=== PATIENT | male | born 1990 | race Caucasian/White ===

== ENCOUNTER 2022-07-08 19:56 | Emergency (ER) | payer OTHER, SELFPAY ==
--- NOTE | ~2022-07-08 | XR_ITS ---
EXAMINATION: XR LUMBOSACRAL SPINE CLINICAL INFORMATION: Back pain. COMPARISON: Radiograph of lumbar spine 08/12/2019. TECHNIQUE: Three views of the lumbosacral spine. FINDINGS: Subtle left apical curvature of the lumbar spine. No acute compression deformity. No subluxation. Disc heights are maintained. Posterior elements are within normal limits. SI joints are symmetric. Pelvic phleboliths are noted. No significant soft tissue abnormality. XR/XR lumbar spine 2-3V IMPRESSION: No acute fracture or malalignment.
[2022-07-08 20:16] VITALS: BP 178/99; PULSE 91; RESP 20; O2SAT 96; BMI 31.9
[2022-07-08 20:20] VITALS: TEMP 36.7
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
[2022-07-08] MEDS: oxyCODONE HCl Immed Release 5 MG TABLET PO (20:47)
[2022-07-08] MEDS: Cyclobenzaprine HCl 10 MG TABLET PO (20:47)
--- NOTE | 2022-07-08 21:58 | ED_ITS ---
HPI - General Adult General Chief complaint: Back Pain/Injury Stated complaint: Lower back pain Time Seen by Provider: 07/08/22 20:42 Source: patient Mode of arrival: ambulatory Limitations: no limitations History of Present Illness HPI narrative: 31-year-old male with history of chronic back pain presents to ED for lower back pain after lifting heavy boxes yesterday at work. Patient denies any blunt trauma falling to the ground. Patient denies any abdominal pain, nausea, vomiting, dysuria, hematuria, flank pain, fever, chills, or any urinary/ bowel incontinence. Patient denies any IV drug use. Patient denies any history of immunocompromised diseases. Related Data Previous Rx's Medication Instructions Recorded cyclobenzaprine 10 mg tablet 10 mg PO BEDTIME PRN muscle spasm 07/08/22 7 days #7 tabs naproxen 500 mg tablet 500 mg PO BID PRN pain 7 days #14 07/08/22 tabs prednisone 20 mg tablet 40 mg PO DAILY 5 days #10 tabs 07/08/22 Allergies Allergy/AdvReac Type Severity Reaction Status Date / Time No Known Allergies Allergy Unverified 05/10/20 17:13 Review of Systems Review of Systems: Back pain Yes all other systems are reviewed and are negative PMFSH Social History Social History Smoked in Last 30 Days: No Use of substances other than those prescribed or required for medical reasons: Yes Substance Use Type: Marijuana Advance Directives: No Advance Directives Information Provided: No Physical Exam ED Vital Signs: Vital Signs - 24 hr 07/08/22 20:16 07/08/22 20:20 07/08/22 22:15 Temperature 98.0 F Pulse Rate 91 87 Respiratory Rate 20 Blood Pressure 178/99 H 139/81 Pulse Oximetry 96 Oxygen Delivery Method Room Air BMI result Body Mass Index 31.9 Const General: cooperative, healthy appearing, comfortable, no acute distress, well developed, alert, awake and Physically active Orientation/consciousness: oriented to time and patient oriented x3 HENMT Head: Yes normal to inspection, Yes No palpable skull fracture present, Yes normocephalic, Yes atraumatic and No abrasion Eyes General: appearance normal, both eyes and all related structures Neck Neck: Yes normal visual inspection, Yes full ROM, Yes no lymphadenopathy, Yes no meningeal signs, Yes trachea midline, Yes supple, No anterior neck swelling and No tender Chest Chest palpation & inspection: normal inspection of the chest and normal palpation of entire chest wall Resp Effort & Inspection: normal respiratory effort and able to speak in complete sentences Auscultation: clear to auscultation bilaterally Cardio Jugular venous distension: no JVD Heart sounds: S1 normal heart sound present and S2 normal heart sound present GI Inspection: Yes normal to inspection and No abdominal wall ecchymosis Palpation (GI): Soft to palpation, not firm, nontender, no guarding and not rigid General: No CVA tenderness and Yes no CVA tenderness Back/Spine/Pelvis Back: no CVA tenderness, No CVA tenderness and back tenderness (lumbar) Skin General skin exam: no rashes or lesions noted and elasticity normal Neuro General: oriented to time, patient oriented x3, gait normal, tone normal, no meningeal signs and CN's II-XI intact bilaterally Cranial nerves: Yes CN's II-XII intact bilaterally Extrem General: Yes normal to inspection and Yes full ROM Psych Appearance: grossly normal, well kempt and not disheveled Course Course Course Narrative: X-ray oxycodone muscle relaxer ordered Reevaluation(s) Reevaluation #1: x-ray normal. Patient to be discharged Time: 22:02 Medications Administered Discontinued Medications Generic Name Dose Route Start Last Admin Trade Name Freq PRN Reason Stop Dose Admin Cyclobenzaprine HCl 10 mg 07/08/22 20:19 07/08/22 20:47 Cyclobenzaprine Hcl 10 Mg Tablet PO 07/08/22 20:20 10 mg ONCE ONE Administration Oxycodone HCl 5 mg 07/08/22 20:19 07/08/22 20:47 Oxycodone Hcl Immed Release 5 Mg Tablet PO 07/08/22 20:20 5 mg ONCE ONE Administration Medical Decision Making [facility] Narrative Medical decision making narrative: Back strain Discharge Plan Discharge Clinical Impression: Strain of lumbar region Patient Disposition: Home, Self-Care Instructions: Low Back Strain (ED), R.I.C.E. Treatment (ED) Additional Instructions: x-ray came back negative for fracture. recommend follow-up with primary care provider. Return to the ED immediately for any urinary/ bowel incontinence, dysuria, hematuria, flank pain, fever, chills, nausea, vomiting, abdominal pain, worsening back pain, or any other concerning symptoms. Prescriptions: New naproxen 500 mg tablet 500 mg PO BID PRN (Reason: pain) 7 Days Qty: 14 0RF prednisone 20 mg tablet 40 mg PO DAILY 5 Days Qty: 10 0RF cyclobenzaprine 10 mg tablet 10 mg PO BEDTIME PRN (Reason: muscle spasm) 7 Days Qty: 7 0RF Rx Instructions: back pain Stand Alone Forms: Work/School Release Interventions: ED Discharge Assessment Last Done: 07/08/22 22:18 Discharge Date/Time: 07/08/22 22:18 Print Language: Turkmen
[2022-07-08 22:15] VITALS: BP 139/81; PULSE 87
--- NOTE | 2022-07-08 22:16 | PC.NURSE ---
. pt reports 0/10 pain at this time. repeat BP performed 139/81 HR 87. discharge packet and work note provided to pt at this time. pt verbalized understanding of discharge plan
== END 2022-07-08 22:18 | disposition home or self-care (01) ==
PROVIDERS: Emergency Provider Internal Medicine; PCP Registered Nurse
DX: S39.012A Strain of muscle, fascia and tendon of lower back, initial encounter (principal); X50.0XXA Overexertion from strenuous movement or load, initial encounter; X50.3XXA Overexertion from repetitive movements, initial encounter; Y93.9 Activity, unspecified; Y92.9 Unspecified place or not applicable; Y99.0 Civilian activity done for income or pay
CPT/HCPCS: 72100; 99283; 99284

== ENCOUNTER 2024-04-24 07:15 | Emergency (ER) | payer SELFPAY ==
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
[2024-04-24 07:31] VITALS: BP 154/86; PULSE 87; RESP 18; TEMP 36.7; O2SAT 98; BMI 29.6
[2024-04-24] MEDS: Ibuprofen 400 MG TABLET PO (08:07)
[2024-04-24] MEDS: Cyclobenzaprine HCl 10 MG TABLET PO (08:07)
[2024-04-24] MEDS: oxyCODONE HCl Immed Release 5 MG TABLET PO (08:08)
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
[2024-04-24 09:48] VITALS: BP 127/85; PULSE 60; RESP 16; TEMP 36.7; O2SAT 98
== END 2024-04-24 09:49 | disposition home or self-care (01) ==
PROVIDERS: Emergency Provider Emergency Medicine
DX: S39.012A Strain of muscle, fascia and tendon of lower back, initial encounter (principal); X58.XXXA Exposure to other specified factors, initial encounter; Y93.89 Activity, other specified; Y92.89 Other specified places as the place of occurrence of the external cause; Y99.8 Other external cause status
CPT/HCPCS: 72100; 99283

== ENCOUNTER 2025-02-27 16:42 | Emergency (ER) | payer SELFPAY ==
--- NOTE | ~2025-02-27 | XR_ITS ---
CLINICAL HISTORY: pain, swelling Radiographs of the left knee, 4 views Comparison: None available Findings: There is no fracture or dislocation. No joint space narrowing or osteophytosis. Bone mineralization is normal. Small joint effusion. Soft tissue swelling. Impression: No fracture. Small joint effusion. This document has been electronically signed by: Althea Dempsey MD on 02/27/2025 18:12:01
[2025-02-27 17:12] VITALS: BP 140/85; PULSE 64; RESP 16; TEMP 36.9; O2SAT 96; BMI 31.6
--- NOTE | 2025-02-27 17:12 | ED_ITS ---
HPI - Extremity Injury (Lower) General Chief Complaint: Extremity Injury, Lower Stated Complaint: L knee pain Related Data Previous Rx's ?Medication ?Instructions ?Recorded cyclobenzaprine 10 mg tablet 10 mg PO BEDTIME PRN musc le spasm 07/08/22 7 days #7 tabs naproxen 500 mg tablet 500 mg PO BID PRN pain 7 day s #14 07/08/22 tabs prednisone 20 mg tablet 40 mg (2 x 20 mg) PO DAILY 5 days 07/08/22 #10 tabs cyclobenzaprine 10 mg tablet 10 mg PO TID PRN muscle s pasm #10 04/24/24 tabs oxycodone 5 mg tablet 5 mg PO Q8H PRN pain #7 tabs 04/24/24 Allergies Allergy/AdvReac Type Severity Reaction Status Date / Time No Known Allergies Allergy Verified 02/27/25 17:15 [facility] Social History Social History Substance Use Type: Marijuana Advance Directives: No Advance Directives Information Provided: No Physical Exam Vital Signs: Vital Signs: Last Vital Signs Temp 98.4 F 02/27/25 17:12 Pulse 64 02/27/25 17:12 Resp 16 02/27/25 17:12 BP 140/85 H 02/27/25 17:12 Pulse Ox 96 02/27/25 17:12 O2 Del Method Room Air 02/27/25 17:12 BMI result Body Mass Index 31.6 Course Course Course Narrative: This is an RME performed by Helena Feliciano CNP: Additional HPI, ROS, PE not included below will be deferred to primary provider. Patient is a 34 year old male who presents emergency department for evaluation. he began experiencing pain to his left knee particularly after prolonged standing while at work. He had taken ibuprofen 400 mg every 8 hours for a few days and pain improved. He also had a week off from work and noticed improvement. He returned to work today and after 2 hours of standing he felt increase in his pain again. Has not taken any NSAIDs/OTC analgesic today. Has previously tried ice and no improvement. No overt injury. No numbness or tingling to the legs. No Redness or warmth. No fevers or chills. Exam: no laxity to the knee, small effusion, no erythema or warmth, slight decreased AROM Plan: XR L knee Reevaluation(s) Reevaluation #1: LWCT Discharge Plan Discharge Clinical Impression: Acute knee pain Qualifiers: Laterality: left Qualified Code(s): M25.562 - Pain in left knee Patient Disposition: Left W/O Completing Treatment Prescriptions: No Action naproxen 500 mg tablet 500 mg PO BID PRN (Reason: pain) 7 Days Qty: 14 0RF prednisone 20 mg tablet 40 mg PO DAILY 5 Days Qty: 10 0RF cyclobenzaprine 10 mg tablet 10 mg PO BEDTIME PRN (Reason: muscle spasm) 7 Days Qty: 7 0RF Rx Instructions: back pain oxycodone 5 mg tablet 5 mg PO Q8H PRN (Reason: pain) Qty: 7 0RF Rx Instructions: Partial Fill upon patient request. cyclobenzaprine 10 mg tablet 10 mg PO TID PRN (Reason: muscle spasm) Qty: 10 0RF Discharge Date/Time: 02/28/25 00:31
--- NOTE | 2025-02-27 23:21 | MHC.EDTECH ---
Patient called to be room @ 0973 - No answer
== END 2025-02-28 00:31 | disposition left against medical advice (07) ==
PROVIDERS: Emergency Provider Emergency Medicine
DX: M25.562 Pain in left knee (principal)
CPT/HCPCS: 73564; 99281; 99283

== ENCOUNTER → 2025-02-27 17:15 | Outpatient (BNV) | payer SELFPAY | PROVIDERS: Visit Provider Radiology Diagnostic Radiology | DX: M25.462 Effusion, left knee (principal) | CPT/HCPCS: 73564 ==

== ENCOUNTER 2025-06-07 15:53 | Outpatient (REF) | payer OTHER, SELFPAY ==
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
--- OUTSIDE RECORDS SUMMARY | 2025-06-07 19:09 | XMS_ITS | Encounter Summary ---
Author Organization [employer] Address [address] [facility] [address] [place] [address] Care Team Providers Care Loss Prevention And Safety Manager Name Role Phone Unavailable Primary Care Provider Unavailabl e Encounter Details Date Type Department Care Team (Latest Contact Info) Description 06/07/2025 Travel Social History Tobacco Use Types Packs/Day Years Used Date Smoking Tobacco: Never Passive Smoke Exposure: Never Smokeless Tobacco: Never Depression Answer Date Recorded Patient Health Questionnaire-9 Score 9 06/07/2025 Patient Health Questionnaire-9 Score 9 06/07/2025 Last PHQ-9: Questionnaire Data Not on file 1 Housing Stability Answer Date Recorded What is your housing situation today? I have rachelejennifer bailey 06/07/[address] you [...] AM EDT documented as of this encounter Functional Status * Over the [...] Duarte MA documented as of this encounter Plan of Treatment Upcoming Encounters Date Type Department Care Team (Late st Contact Info) Description 07/07/2025 9:15 AM EST Office Visit [facility] [address] [place] [id number] documented as of this encounter Visit Diagnoses Not on filedocumented in this encounter Additional Health Concerns Assessment Noted Time PHQ-9 Depression Total Score: 9 06/07/20 25 2:58 PM EDT documented as of this encounter
--- OUTSIDE RECORDS SUMMARY | 2025-06-07 19:09 | XMS_ITS | Clinical Summary ---
Author Organization [employer] Address [address] [place] [address] Care Team Providers Care Farm Mortgage Agent Name Role Phone Unavailable Primary Care Provider Unavailabl e Allergies No known active allergies Medications albuterol 108 (90 Base) MCG/ACT inhalerIndicatio ns:Mild intermittent asthma without complication Inhale 2 puffs every 4 (four) hours. 9 Active Omeprazole 20 MG tablet delayed-releaseI ndications:Gastr oesophageal reflux disease, unspecified whether esophagitis present Take 1 tablet (20 mg) by mouth Once per day. 30 tablet 3 5 Active escitalopram (Lexapro) 5 MG tabletIndication s:Generalized anxiety disorder with panic attacks Take 1 tablet (5 mg) by mouth Once per day. 30 tablet 2 5 026 Active Blood Pressure Monitoring (Blood Pressure Cuff) miscIndications: Elevated blood pressure reading 1 each Once per day. 1 each 5 Active Melatonin ER 5 MG tablet controlled-relea se Take 1 tablet (5 mg) by mouth at bedtime. 30 tablet 1 5 025 Discontinued Active Problems Problem Noted Date Diagnosed Date Mild intermittent asthma 06/07/2025 Assessment & Plan (06/07/2025 4:29 PM EDT): Currently well controlled with albuterol use 3x/month. Advised to contact office if acute exacerbation (illness) or using albuterol >2X/week Elevated blood pressure reading 06/07/2025 Assessment & Plan (06/07/2025 4:29 PM EDT): Instructed to record BP at home at various times of day. Encouraged diet and exercise, decrease salt intake. Will consider anti-hypertensive medication at F/U in 4-6 weeks. Orders: Blood Pressure Monitoring (Blood Pressure Cuff) misc; 1 each Once per day. Generalized anxiety disorder with panic attacks 06/07/2025 Assessment & Plan (06/07/2025 4:29 PM EDT): Already established with therapist at [facility]. Will start Lexapro daily. F/U in 4-6 weeks. Will consider hydroxyzine prn if panic attacks persist. Could also be used to help with sleep. Orders: escitalopram (Lexapro) 5 MG tablet; Take 1 tablet (5 mg) by mouth Once per day. Gastroesophageal reflux disease 06/07/2025 Assessment & Plan (06/07/2025 4:29 PM EDT): Reporting frequent heartburn, especially at night. Advised to avoid eating close to bedtime. Avoid spicy or acidic foods. Start omeprazole daily on an empty stomach and F/U in 4-6 weeks. Orders: Omeprazole 20 MG tablet delayed-release; Take 1 tablet (20 mg) by mouth Once per day. Rash 06/07/2025 Assessment & Plan (06/07/2025 4:29 PM EDT): Diffuse nodules on torso and arms. Reports that he has been told in the past that it is eczema, but no previous therapies have helped. Orders: Referral to [facility] Derm Skin; Future Resolved Problems Problem Noted Date Diagnosed Date Resolved Date Primary insomnia 06/07/2025 06/07/2025 Encounters Date Type Department Care Team Description 06/07/2025 2:30 PM EDT Office Visit [facility] [address] [place] [address] Dulce Maria Anderson MD Mild intermittent asthma without complication (Primary Dx); Dietary counseling; Exercise counseling; Generalized anxiety disorder with panic attacks; Gastroesophageal reflux disease, unspecified whether esophagitis present; Rash; Elevated blood pressure reading 06/07/2025 Travel 06/06/2025 Telephone [facility] [address] [place] [address] Carol Villalba NP Chart Prep 05/31/2025 Patient Outreach [facility] [address] [place] [address] Carol Villalba NP Pre-visit Planning ([facility] unable to reach LVM ) 05/23/2025 Telephone [facility] [address] [place] [address] Joel Ochoa MD 05/03/2025 Telephone [facility] [address] [place] [address] Joel Ochoa MD Appointment Request from Last 3 Months Social History Tobacco Use Types Packs/Day Years [...] not to disclose 2021 10:17 AM EDT Last Filed Vital Signs Vital Sign Reading [...] Mass Index 33.12 06/07/2025 2:45 PM EDT Plan of Treatment Upcoming Encounters Date Type Department Care Team ([facility] st Contact Info) Description 07/07/2025 9:15 AM EST Office Visit [facility] [address] [place] [address] Health Maintenance Due Date Last Done Comments Family Planning (PISQ) 2005 HPV Vaccines (1 - 3-dose series) 2005 Hepatitis C Screening 2008 DTaP/Tdap/Td Vaccines (1 - Tdap) 2009 Hepatitis B Vaccines (1 of 3 - 19+ 3-dose series) 2009 Pneumococcal Vaccine: Pediatrics (0 to 5 Years) and At-Risk Patients (6 to 49) Years (1 of 2 - PCV) 2009 COVID-19 Vaccine (1 - 2023-2 5 season) 2025 Influenza Vaccine (#1) 2025 Depression Monitoring 12/06/2025 06/07/2025 , 06/07/2025 Alcohol/Substance Use Screening 06/07/2026 06/07/2025 Disability Screening 06/07/2026 06/07/2025 SDOH Screening 06/07/2026 06/07/2025 Tobacco Screening 06/07/2026 06/07/2025 Zoster Vaccines (1 of 2) 2040 RSV Patients and Patients Aged 60 years or older (1 - 1-dose 75+ series) 2065 HIV Screening Completed 08/29/2019 HIB Vaccines Aged Out No longer eligi ble based on patient's age to complete this topic Hepatitis A Vaccines Aged Out No long er eligible based on patient's age to complete this topic IPV Vaccines Aged Out No longer eligi ble based on patient's age to complete this topic Meningococcal B Vaccine Aged Out No l onger eligible based on patient's age to complete this topic Meningococcal Vaccine Aged Out No luis enrique jake eligible based on patient's age to complete this topic RSV under 20 months Aged Out No longe r eligible based on patient's age to complete this topic Rotavirus Vaccines Aged Out No longer eligible based on patient's age to complete this topic Procedures Procedure Name Priority Date/Time Associated Diagnosis Comments RACHEL HISTORICAL HIV AB/AG Routine 08/29/2019 11:30 AM EST from Last 3 Months or Most Recently Relevant to Health Maintenance Results * HIV AB/AG (08/29/2019 11:30 AM EST) [facility] HIV AG/AB NONREACTIVE [facility] Comment: HIV-1 p24 Ag and/or HIV-1/HIV-2 Ab not detected. A test result that is nonreactive does not exclude the possibility of exposure to or infection with HIV-1 and/or HIV-2. Nonreactive results in this assay for individuals with prior exposure to HIV-1 and/or HIV-2 may be due to antigen and antibody levels that are below the limit of detection of this assay. The [employer] HIV Ag/Ab Combo assay result and supplemental assay results should be interpreted in conjunction with the patient's clinical presentation, history and other laboratory results. If the results are inconsistent with clinical evidence, additional testing is suggested to confirm the result. 08/29/2019 11:3 0 AM EST us Historical Provider HISTORICAL/NON ORDERABLE LABS Final Result [facility] [address] from Last 3 Months or Most Recently Relevant to Health Maintenance Insurance [facility] PPO
--- OUTSIDE RECORDS SUMMARY | 2025-06-07 19:09 | XMS_ITS | Encounter Summary ---
Author Organization [employer] Address [address] [place] [address] Care Team Providers Care Talent Acquisition Associate Name Role Phone Unavailable Primary Care Provider Unavailabl e Reason for Visit * Reason Onset Date Comments Chart Prep 06/06/2025 Encounter Details Date Type Department Care Team ([facility] st Contact Info) Description 06/06/2025 Telephone [facility] [address] [place], [place] [phone] Carol Villalba, SILVIA [address] [place], [place] [phone] Chart Prep Social History Tobacco Use Types Packs/Day Years Used Date Smoking Tobacco: Never Assessed Depression Answer Date Recorded Patient Health Questionnaire-9 [...] AM EDT documented as of this encounter Miscellaneous Notes * Telephone Encounter - Arabella Person [place] - 06/06/2025 8:56 AM EDT Chart Prep Labs: not applicable Images: not applicable Referrals: not applicable Vaccines due: Covid, Flu, PCV20, Tdap, Hep B, and HPV Screenings: Hep C Overdue care gaps: SBIRT, SDOH, PHQ-9, MARILYN-7, Oral health screening, Disability screen, and Tobacco documented in this encounter Plan of Treatment Upcoming Encounters Date Type Department Care Team (Late st Contact Info) Description 07/07/2025 9:15 AM EST Office Visit [facility] [address] [place] [address] documented as of this encounter Visit Diagnoses Not on filedocumented in this encounter
[2025-06-08 04:47] LABS: CT PCR Urine NOT DETECTED (Not Detect.); NG PCR Urine NOT DETECTED (Not Detect.)
== END 2025-06-07 15:54 | disposition home or self-care (01) ==
LOC: HO.HHCL 15:53
PROVIDERS: PCP Internal Medicine; Visit Provider Internal Medicine
DX: Z11.3 Encounter for screening for infections with a predominantly sexual mode of transmission (principal); Z20.2 Contact with and (suspected) exposure to infections with a predominantly sexual mode of transmission
CPT/HCPCS: 87491; 87591

== ENCOUNTER 2025-08-13 13:17 | Emergency (ER) | payer OTHER, SELFPAY ==
[2025-08-13 13:35] VITALS: BP 171/86; PULSE 96; RESP 16; TEMP 36.6; O2SAT 96; BMI 32.5
--- NOTE | 2025-08-13 13:35 | ED.ABDPAIN ---
HPI - Abdominal Pain General Chief Complaint: Nausea/Vomiting/Diarrhea Stated Complaint: vomitting since thu, bicep numb, [place], fever Time Seen by Provider: 08/13/25 13:43 Source: patient, RN notes reviewed and old records reviewed Mode of arrival: ambulatory Limitations: no limitations History of Present Illness ED Provider: Gray HPI narrative: Patient is a 34-year-old male presenting to the emergency department with complaint of diarrhea which began on night, then nausea and vomiting which began on Thursday and has persisted through the weekend. States he has not been able to tolerate any p.o. fluids. States emesis has been nonbloody, nonbilious. Reports he has not had diarrhea since . Denies fevers. Diffuse abdominal pain. States that when he started vomiting on Thursday he developed a headache and pain to bilateral upper arms. Related Data Previous Rx's ?Medication ?Instructions ?Recorded cyclobenzaprine 10 mg tablet 10 mg PO BEDTIME PRN muscle spasm 07/08/22 7 days #7 tabs naproxen 500 mg tablet 500 mg PO BID PRN pain 7 days #14 07/08/22 tabs prednisone 20 mg tablet 40 mg (2 x 20 mg) PO DAILY 5 days 07/08/22 #10 tabs cyclobenzaprine 10 mg tablet 10 mg PO TID PRN muscle spasm #10 04/24/24 tabs oxycodone 5 mg tablet 5 mg PO Q8H PRN pain #7 tabs 04/24/24 ondansetron 4 mg disintegrating 4 mg PO Q8H PRN nausea and 08/13/25 tablet vomiting #10 tabs Allergies Allergy/AdvReac Type Severity Reaction Status Date / Time No Known Allergies Allergy Verified 08/13/25 13:36 Review of Systems Review of Systems As per HPI Yes all other systems are reviewed and are negative Constitutional: Reports as per HPI [facility] Social History Social History Smoked in Last 30 Days: No Use of substances other than those prescribed or required for medical reasons: Yes Substance Use Type: Marijuana Substance Use Frequency: Monthly Advance Directives: No Advance Directives Information Provided: No Do you have a plan to hurt others: No Plan Physical Exam ED Vital Signs: Vital Signs - 24 hr 08/13/25 13:35 08/13/25 14:07 Temperature 98 F 98.2 F Pulse Rate 96 89 Respiratory Rate 16 18 Blood Pressure 171/86 H 171/98 H Pulse Oximetry 96 95 Oxygen Delivery Method Room Air Room Air BMI result Body Mass Index 32.5 Vital signs have been reviewed and appear to be correct. Blood pressure elevated. Heart rate normal. Respiratory rate normal. Temperature normal. Oxygen saturation normal. Const General: cooperative, healthy appearing and no acute distress Orientation/consciousness: oriented to person, oriented to place, oriented to time and patient oriented x3 Limitations: no limitations HENMT Head: Yes normocephalic and Yes atraumatic Ears: external ears normal General nose exam: Normal external nose present Face and sinus: Yes face symmetric Mouth: oropharynx normal and moist mucous membranes Throat: Yes uvula midline Eyes Pupils: Equal, round and reactive pupils present Neck Neck: Yes normal visual inspection and Yes supple Resp Effort & Inspection: normal respiratory effort and able to speak in complete sentences Auscultation: clear to auscultation bilaterally Cardio Rate: regular rate Rhythm: regular rhythm Heart sounds: S1 normal heart sound present and S2 normal heart sound present GI Palpation (GI): Soft to palpation and nontender Auscultation: normoactive bowel sounds General: Yes no CVA tenderness Back/Spine/Pelvis Back: no CVA tenderness Skin General skin exam: elasticity normal and turgor normal Neuro General: oriented to person, oriented to place, oriented to time, patient oriented x3, moves all extremities, no focal motor deficits and CN's II-XI intact bilaterally Cranial nerves: Yes Equal, round and reactive pupils present Cognition (Neuro): normal cognition Extrem General: Yes full ROM, Yes no pedal edema and Yes no calf tenderness Psych Mental Status: mental status grossly normal Affect: normal affect Thought process: Normal thought process present Course Course Course Narrative: This is a Rapid Medical Examination (RME) performed by Pippa Tang NP in triage. Full assessment, plan deferred to refrigeration systems installer. 34-year-old male presents to the ED for evaluation of 3 days of nausea, vomiting. Reports that since yesterday he has developed pain to the bilateral biceps, as well as headache after vomiting episodes. He called the on-call provider yesterday, who recommended ER evaluation. Generalized abdominal pain, no diarrhea, constipation. Cannot hold down anything PO per his report. Subjective fever, chills. No known sick contacts. No abdominal surgeries. No urinary complaints, is urinating normally. +daily marijuana user, has not been using marijuana since illness, approx. 3 days. Denies hx of cyclical vomiting. Plan: UA, labs. Medical Decision Making Medical Decision Making [facility] Narrative: Patient is a 34-year-old male presenting to the emergency department with complaint of diarrhea which began on night, then nausea and vomiting which began on Thursday and has persisted through the weekend. On exam patient is awake, A+Ox3, BP elevated, VS otherwise WNL, afebrile, normal neurological exam without focal deficits, physical exam findings as above. Patient reports known history of HTN, states his PCP wanted to see if his BPs improved with weight loss and has not started him on any antihypertensive medications. Given reported symptoms and physical exam findings, initial differential includes but is not limited to viral illness, COVID, flu, gastroenteritis, electrolyte abnormality, dehydration, cannabinoid hyperemesis syndrome. Labs notable for leukocytosis, otherwise grossly within normal limits, normal CK. EKG shows normal sinus rhythm. Viral serology negative. Medicated with IV fluids and droperidol with good improvement in symptoms. Able to tolerate mi jacques in the ED. Feel comfortable with Discharge home. Will send prescription for Zofran. Return precautions discussed at bedside. Patient verbalized understanding of and agreement with plan. Differential Diagnosis Differential Diagnoses: The differential diagnosis associated with the presentation includes as per [facility] Admission/Observation Consideration of admission/observation: Escalation of care including admission/observation considered Patient would have been admitted to the hospital and transferred to appropriate facility had their clinical presentation warranted hospital admission. Lab Data [facility] Lab Attestation statement: I reviewed the patient's lab results. as per [facility] 08/13/25 14:26 08/13/25 13:57 Labs: Lab Results 08/13/25 08/13/25 Range/Units 13:57 14:26 WBC 15.2 H (4.8-10.8) X10*3/uL RBC 4.60 (4.60-5.80) X10*6/uL Hgb 14.0 (14.0-18.0) g/dl Hct 40.8 L (42.0-52.0) % MCV 88.7 (80.0-98.0) fL MCH 30.4 (27.0-33.0) pg MCHC 34.3 (31.0-36.0) g/dl RDW 12.4 (11.0-16.0) % Plt Count 225 (160-400) X10*3/uL MPV 10.6 (9.4-12.4) fL Immature Gran % (Auto) 0.4 (0.0-0.4) % Neut % (Auto) 82.0 H (45-73) % Lymph % (Auto) 8.8 L (20-40) % Imperial % (Auto) 8.3 (2-11) % Eos % (Auto) 0.1 (0-4) % Baso % (Auto) 0.4 (0-2) % Lymph # (Auto) 1.3 (1.2-4.9) X10*3/uL Imperial # (Auto) 1.3 H (0.1-1.2) X10*3/uL Eos # (Auto) 0.0 (0.0-0.4) X10*3/uL Baso # (Auto) 0.1 (0.0-0.2) X10*3/uL Abs Immat Gran (auto) 0.06 H (0.00-0.03) X10*3/uL Absolute Neuts (auto) 12.4 H (2.0-8.3) x10*3/uL Absolute Nucleated RBC 0.000 (0.0-0.012) X10*3/uL Nucleated RBC % (auto) 0.0 (0.0-0.2) /100WBC Sodium 142 (135-145) mmol/L Potassium 3.9 (3.3-5.1) mmol/L Chloride 112 H (96-108) mmol/L Carbon Dioxide 17 L (22-29) mmol/L Anion Gap 17 (12-20) BUN 9 (9-16) mg/dL Creatinine 0.95 (0.5-1.4) mg/dL Estim Creat Clear Calc 123.7 Estimated GFR > 60 Random Glucose 121 H (60-115) mg/dL Calcium 9.4 (8.4-10.2) mg/dL Total Bilirubin 0.5 (0.0-1.0) mg/dL Direct Bilirubin 0.2 (0.0-0.5) mg/dL AST 26 (5-37) U/L ALT 33 (0-40) U/L Alkaline Phosphatase 73 (39-117) U/L Total Creatine Kinase 102 (38-174) U/L Total Protein 7.8 (6.5-8.0) g/dL Albumin 4.9 (3.5-5.0) g/dL Urine Color Dark Yellow Urine Appearance Clear Urine pH 6.5 (5.0-9.0) Ur Specific Orient >= 1.030 H (1.005-1.025) Urine Protein 100 (2+) H (Neg-Trace) mg/dL Urine Glucose (UA) Negative (Negative) mg/dL Urine Ketones Trace (Negative) mg/dL Urine Blood Negative (Negative) Urine Nitrite Negative (Negative) Ur Leukocyte Esterase Small (1+) H (Negative) Urine RBC 0-2 (0-2) /HPF Urine WBC 0-5 (0-5) /HPF Ur Squamous Epith Cells 3-5 (0-2) /HPF Urine Bacteria None Seen (None Seen) Hyaline Casts 3-5 (0-2) /LPF Influenza Type A (PCR) NEGATIVE (Negative) Influenza Type B (PCR) NEGATIVE (Negative) RSV RNA Qual (PCR) NEGATIVE (Negative) SARS-CoV-2 RNA (RT-PCR) NEGATIVE (Negative) Independent Interpretation I performed an independent interpretation of an: EKG (normal sinus rhythm, rate 88bpm, normal [place] interval and QTc) External Record Review External record reviewed: Inpatient record, Office record and Outpatient record Prescription Management I considered prescription management with: Other Medications Administered Discontinued Medications Generic Name Dose Route Start Last Admin Trade Name Freq PRN Reason Stop Dose Admin Droperidol 1.25 mg 08/13/25 13:46 08/13/25 14:22 Droperidol 5 Mg/2 Ml Vial IVPUSH 08/13/25 13:47 1.25 mg ONCE ONE Administration Lactated Ringer's 1,000 mls @ 999 mls/hr 08/13/25 14:00 08/13/25 14:22 Lr IV 08/13/25 15:00 999 mls/hr .Q1H1M CHRISTOPHER Administration Discharge Plan Discharge Clinical Impression: Gastroenteritis Patient Disposition: Home, Self-Care Instructions: Gastroenteritis (DC), Acute Nausea and Vomiting (DC), Acute Diarrhea (ED) Additional Instructions: You have been evaluated in the emergency department today for nausea, vomiting, and diarrhea. Your evaluation suggests that your symptoms are most likely due to a viral illness which will improve on it's own with rest and fluids. Remember to drink plenty of fluids at home. You are being prescribed ondansetron which you can use as per the prescription instructions for nausea. Please follow up with your primary care provider within two days. Return to the emergency department if you experience worsening or uncontrolled pain, inability to tolerate fluids by mouth, difficulty breathing, fevers 100.4? F or greater, recurrent vomiting, or any other concerning symptoms. Prescriptions: New ondansetron 4 mg tablet,disintegrating 4 mg PO Q8H PRN (Reason: nausea and vomiting) Qty: 10 0RF No Action naproxen 500 mg tablet 500 mg PO BID PRN (Reason: pain) 7 Days Qty: 14 0RF prednisone 20 mg tablet 40 mg PO DAILY 5 Days Qty: 10 0RF cyclobenzaprine 10 mg tablet 10 mg PO BEDTIME PRN (Reason: muscle spasm) 7 Days Qty: 7 0RF Rx Instructions: back pain oxycodone 5 mg tablet 5 mg PO Q8H PRN (Reason: pain) Qty: 7 0RF Rx Instructions: Partial Fill upon patient request. cyclobenzaprine 10 mg tablet 10 mg PO TID PRN (Reason: muscle spasm) Qty: 10 0RF Stand Alone Forms: Work/School Release Print Language: Japanese
--- NOTE | 2025-08-13 13:44 | ECG_ITS ---
Test Reason : VOMITING, ARM PAIN Blood Pressure : */* mmHG Vent. Rate : 88 BPM Atrial Rate : 88 BPM P-R Int : 164 ms QRS Dur : 96 ms QT Int : 340 ms P-R-T Axes : 54 20 24 degrees QTcB Int : 411 ms Normal sinus rhythm Incomplete right bundle branch block Borderline ECG When compared with ECG of 29-Aug-2019 12:23, Non-specific change in ST segment in Lateral leads Referred By: Adilene Castellano Electronically Signed By: GARFIELD DIALLO MD
--- OUTSIDE RECORDS SUMMARY | 2025-08-13 13:53 | XMS_ITS | Clinical Summary ---
Author Organization [employer] Address [address] [facility] [address] [place] [address] Care Team Providers Care Group Contract Analyst Name Role Phone Carol Villalba NP Primary Care Provider [phone] Allergies No known active allergies Medications albuterol 108 (90 Base) MCG/ACT inhalerIndication s:Mild intermittent asthma without complication Inhale 2 puffs every 4 (four) hours. 2019 Active Omeprazole 20 MG tablet delayed-releaseIn dications:Gastroe sophageal reflux disease, unspecified whether esophagitis present Take 1 tablet (20 mg) by mouth Once per day. 30 tablet 3 06/07/2025 Active escitalopram (Lexapro) 5 MG tabletIndications :Generalized anxiety disorder with panic attacks Take 1 tablet (5 mg) by mouth Once per day. 30 tablet 2 06/07/2025 09/05/19 26 Active Blood Pressure Monitoring (Blood Pressure Cuff) miscIndications:E levated blood pressure reading 1 each Once per day. 1 each 06/07/2025 Active Active Problems Problem Noted Date Diagnosed Date [...] PM EDT): Already established with therapist at [facility]. Will start Lexapro daily. F/U in 4-6 [...] previous therapies have helped. Orders: Referral to [facility] Derm Skin; Future Resolved Problems Problem Noted Date Diagnosed Date Resolved Date Primary insomnia 06/07/2025 06/07/2025 Encounters Date Type Department Care Team Description 06/15/2025 Telephone [facility] MED & PEDS [address] [place] [address] Danielle France MA derm appt 06/07/2025 2:30 PM EDT Office Visit [facility] [address] [place] [address] Dulce Maria Anderson MD Mild intermittent asthma without complication (Primary Dx); Dietary counseling; Exercise counseling; Generalized anxiety disorder with panic attacks; Gastroesophageal reflux disease, unspecified whether esophagitis present; Rash; Elevated blood pressure reading 06/07/2025 Orders Only [facility] [address] [place] [address] Dulce Maria Anderson MD 06/07/2025 Travel 06/06/2025 Telephone [facility] [address] [place] [address] Carol Villalba NP Chart Prep 05/31/2025 Patient Outreach [facility] & PEDS [address] [place] [address] Carol Villalba NP Pre-visit Planning (SDOH unable to reach LVM ) 05/23/2025 Telephone [facility] [address] [place] [address] Joel Ochoa MD from Last 3 Months Social History Tobacco [...] 06/07/2025 2:45 PM EDT Plan of Treatment Health Maintenance Due Date Last Done Comments Family Planning (PISQ) 2005 HPV Vaccines (1 - 3-dose series) 2005 Hepatitis C Screening 2008 DTaP/Tdap/Td Vaccines (1 - Tdap) 2009 Hepatitis B Vaccines (1 of 3 - 19+ 3-dose series) 2009 Pneumococcal Vaccine: Pediatrics (0 to 5 Years) and At-Risk Patients (6 to 49) Years (1 of 2 - PCV) 2009 COVID-19 Vaccine ( - 2024-2 6 season) 2025 Influenza Vaccine (#1) 2025 Depression [...] Procedure Name Priority Date/Time Associated Diagnosis Comments CHLAMYDIA/TRICHOMONA S/NEISSERIA GONORRHOEAE, PCR, URINE Routine 06/07/2025 3:58 PM EDT RACHEL HISTORICAL HIV AB/AG Routine 08/29/2019 11:30 AM EST from Last 3 Months or Most Recently Relevant to Health Maintenance Results * Chlamydia/Trichomonas/Neisseria gonorrhoeae, PCR, Urine (06/07/2025 3:58 PM EDT) CT PCR, Urine NOT DETECTED Not Detect. LABS Comment:A not detected test result does not exclude the possibilityof infection because test results can be affected byimproper specimen collection, concurrent antibiotic therapy,or the number of organisms in the specimen which may bebelow the sensitivity of the test. As with many diagnostictests, results from the Xpert CT/NG assay should beinterpreted in conjunction with other laboratory andclinical data available to the clinician.The Xpert CT/NG assay should not be used for the evaluationof suspected sexual abuse or for other medico-legalindications. Additional testing is recommended in anycircumstance when false positive or false negative resultscould lead to adverse medical, social or psychologicalconsequences. NG PCR, Urine NOT DETECTED Not Detect. LABS Comment:A not detected test result does not exclude the possibilityof infection because test results can be affected byimproper specimen collection, concurrent antibiotic therapy,or the number of organisms in the specimen which may bebelow the sensitivity of the test. As with many diagnostictests, results from the Xpert CT/NG assay should beinterpreted in conjunction with other laboratory andclinical data available to the clinician.The Xpert CT/NG assay should not be used for the evaluationof suspected sexual abuse or for other medico-legalindications. Additional testing is recommended in anycircumstance when false positive or false negative resultscould lead to adverse medical, social or psychologicalconsequences. 06/07/2025 3:58 PM EDT 06/07/2025 6:09 PM EDT us Dulce Maria Fisher MD LAB URINE ORDERABLES Final Result Performing Organization Address [facility] Co de Phone Number LABS [address] [place] [address] [phone] * HIV AB/AG (08/29/2019 11:30 AM EST) Pathologist [facility] HIV AG/AB NONREACTIVE NR FOUNDATI ON LAB [...] of detection of this assay. The [employer] HIV Ag/Ab Combo assay result and supplemental assay results should be interpreted in conjunction with the patient's clinical presentation, history and other laboratory results. If the results are inconsistent with clinical evidence, additional testing is suggested to confirm the result. 08/29/2019 11:3 0 AM EST us Historical Provider HISTORICAL/NON ORDERABLE LABS Final Result Performing Organization Address [facility] Co de Phone Number [facility] [address] from Last 3 Months or Most Recently Relevant to Health Maintenance Insurance [employer] P[employer] [address] Care Teams Group Contract Analyst Relationship Specialty Start Date End Date Carol Villalba NP [address] [place] [phone] PCP - General Nurse Practitioner 08/09/25
[2025-08-13 14:07] VITALS: BP 171/98; PULSE 89; RESP 18; TEMP 36.8; O2SAT 95
[2025-08-13 14:11] LABS: Appearance Urine Clear; Glucose Urine UA Negative (Negative); PH 6.5 (5.0-9.0); Specific Gravity - Urine >= 1.030 (1.005-1.025); UMIC TRIGGER UACC YES
[2025-08-13 14:18] LABS: UACC Culture Trigger YES
[2025-08-13] MEDS: Lactated Ringers 1,000 ML 999 ML IV (14:22)
[2025-08-13 14:33] LABS: Hematocrit 40.8 % (42.0-52.0); Hemoglobin 14.0 g/dl (14.0-18.0); Imm Gran Abs Auto 0.06 X10*3/uL (0.00-0.03); Imm Gran Pct Auto 0.4 % (0.0-0.4); Lymphocytes Absolute Auto 1.3 X10*3/uL (1.2-4.9); Mean Corpuscular HGB Conc 34.3 g/dl (31.0-36.0); Mean Corpuscular Hemoglobin 30.4 pg (27.0-33.0); Mean Corpuscular Volume 88.7 fL (80.0-98.0); NRBC Abs Auto 0.000 X10*3/uL (0.0-0.012); NRBC Pct Auto 0.0 /100WBC (0.0-0.2); Platelet Count 225 X10*3/uL (160-400); Red Blood Count 4.60 X10*6/uL (4.60-5.80); White Blood Count 15.2 X10*3/uL (4.8-10.8)
[2025-08-13 14:33] LABS: Alanine Aminotransferase 33 U/L (0-40); Albumin Level 4.9 g/dL (3.5-5.0); Anion Gap 17 (12-20); Aspartate Amino Transferase 26 U/L (5-37); Blood Urea Nitrogen 9 mg/dL (9-16); Calcium 9.4 mg/dL (8.4-10.2); Carbon Dioxide 17 mmol/L (22-29); Chloride 112 mmol/L (96-108); Creatinine Clr Calc Pharmacy 123.7; Estimated Glomerular Filt Rate > 60; Potassium 3.9 mmol/L (3.3-5.1); Sodium 142 mmol/L (135-145); Total Protein 7.8 g/dL (6.5-8.0)
[2025-08-13 14:44] LABS: Alkaline Phosphatase 73 U/L (39-117)
[2025-08-13 14:45] LABS: Resp Syncy Virus RNA Qual PCR NEGATIVE (Negative); SARS COV2 PCR INHOUSE NEGATIVE (Negative)
[2025-08-13 16:11] VITALS: BP 171/98; PULSE 89; RESP 18; TEMP 36.8; O2SAT 95
== END 2025-08-13 16:12 | disposition home or self-care (01) ==
PROVIDERS: Nurse Practitioner; Registered Nurse Emergency; Emergency Provider Emergency Medicine Emergency Medical Services; PCP Internal Medicine
DX: K52.9 Noninfective gastroenteritis and colitis, unspecified (principal); R11.2 Nausea with vomiting, unspecified; R10.84 Generalized abdominal pain; M79.622 Pain in left upper arm; M79.621 Pain in right upper arm; R51.9 Headache, unspecified; Z03.818 Encounter for observation for suspected exposure to other biological agents ruled out
CPT/HCPCS: 80053; 81001; 82248; 82550; 85025; 87086; 87637; 93005; 96361; 96374; 99284; 99285; J1790; J7120

== ENCOUNTER → 2025-08-13 13:44 | Outpatient (BNV) | payer OTHER, SELFPAY | PROVIDERS: Emergency Provider Emergency Medicine Emergency Medical Services; PCP Internal Medicine; Visit Provider Internal Medicine Cardiovascular Disease | DX: I45.10 Unspecified right bundle-branch block (principal) | CPT/HCPCS: 93010 ==